=== PATIENT | male | born 1950 | race Caucasian/White ===

== ENCOUNTER 2016-08-14 07:44 | Day surgery (SDC) | payer OTHER, MEDICARE ==
[2016-08-12 12:22] VITALS: BMI 28.8
[2016-08-14] MEDS ORDERED: PROPOFOL 20 ML ONE ×2 (07:48)
[2016-08-14 09:39] VITALS: TEMP 98
[2016-08-14 09:40] VITALS: BP 125/68; PULSE 56
--- NOTE | 2016-08-15 16:07 | PATH ---
Surgical Pathology Report Patient Name: ELIZABETH HUANG [facility]. Rec. #: [id number] /Age/Gender: 1950 (Age: 65) / M Account: [id number] Location: [facility] [place]-ENDOSCOPY Taken: 08/14/2016 Received: 08/14/2016 Reported: 08/15/2016 Physicians: Cayden Santos M.D. Specimen(s) Received BX LEFT COLON Clinical History Rule out colon cancer Polyp Final Diagnosis COLON, LEFT, POLYP, BIOPSY: POLYPOID FRAGMENTS OF COLONIC MUCOSA WITH SURFACE HYPERPLASTIC CHANGE. Electronically Signed Hay Becker M.D. Gross Description Received in formalin, labeled "left colon" are 3 marshall, irregular portions of soft tissue ranging from 0.1-0.3 cm in greatest dimension. The specimens are submitted in toto in one cassette. /08/14/2016 saudi08/14/2016
== END 2016-08-14 09:45 | disposition home or self-care (01) ==
LOC: FASU-ENDO 07:44
PROVIDERS: ATTEND Internal Medicine Gastroenterology
PROC: 0DBM8ZX Excision of Descending Colon, Via Natural or Artificial Opening Endoscopic, Diagnostic (ICD-10-PCS; principal; 2016-08-14 08:52)
DX: Z12.11 Encounter for screening for malignant neoplasm of colon (principal); Z80.0 Family history of malignant neoplasm of digestive organs; D12.4 Benign neoplasm of descending colon; K57.30 Diverticulosis of large intestine without perforation or abscess without bleeding
CPT/HCPCS: 88305-TC

== ENCOUNTER 2017-10-08 07:54 | Day surgery (SDC) | payer OTHER, MEDICARE ==
[2017-10-06 09:03] VITALS: BMI 28.1
[2017-10-08] MEDS ORDERED: PROPOFOL 20 ML ONE ×2 (08:03)
[2017-10-08 09:13] VITALS: TEMP 97.6
[2017-10-08 09:27] VITALS: BP 101/65; PULSE 62
--- NOTE | 2017-10-10 16:50 | PATH ---
Surgical Pathology Report Patient Name: ELIZABETH HUANG [facility]. Rec. #: [id number] /Age/Gender: 1950 (Age: 67) / M Account: [id number] Location: [address] [place] [address] Taken: 10/08/2017 Received: 10/08/2017 Reported: 10/10/2017 Physicians: Cayden Santos M.D. Specimen(s) Received A: DUODENUM B: BX ANTRUM Clinical History Dysphagia Postoperative diagnosis: Gastritis, rule out celiac disease Final Diagnosis A. DUODENUM, BIOPSY: DUODENAL MUCOSA WITH NO DIAGNOSTIC ABNORMALITIES. NO HISTOLOGIC EVIDENCE OF CELIAC DISEASE. B. ANTRUM, BIOPSY: GASTRIC MUCOSA WITH MILD ACTIVE CHRONIC GASTRITIS. IMMUNOSTAIN IS NEGATIVE FOR H. PYLORI ORGANISMS. Electronically Signed Keyshawn Beasley M.D. Gross Description A. Received in formalin, labeled "duodenum" are 2 marshall, irregular portions of soft tissue averaging 0.3 cm. in greatest dimension. The specimens are submitted in toto in one cassette. B. Received in formalin, labeled "antrum" are 2 marshall, irregular portions of soft tissue measuring 0.3 and 0.4 cm. in greatest dimension. The specimens are submitted in toto in one cassette. 10/09/2017 saudi10/09/2017
== END 2017-10-08 09:32 | disposition home or self-care (01) ==
LOC: FASU-ENDO 07:54
PROVIDERS: ATTEND Internal Medicine Gastroenterology
PROC: 0D748DZ Dilation of Esophagogastric Junction with Intraluminal Device, Via Natural or Artificial Opening Endoscopic (ICD-10-PCS; 2017-10-08)
PROC: 0DB98ZX Excision of Duodenum, Via Natural or Artificial Opening Endoscopic, Diagnostic (ICD-10-PCS; principal; 2017-10-08 08:43)
PROC: 0DB68ZX Excision of Stomach, Via Natural or Artificial Opening Endoscopic, Diagnostic (ICD-10-PCS; 2017-10-08 08:43)
DX: R13.10 Dysphagia, unspecified (principal); K29.50 Unspecified chronic gastritis without bleeding
CPT/HCPCS: 88305-TC; 88342-TC

== ENCOUNTER 2020-04-24 19:20 | Emergency (ER) | payer OTHER, MEDICARE ==
[2020-04-24 19:29] VITALS: BP 125/84; PULSE 82; TEMP 99; BMI 28.1
[2020-04-24 21:17] LABS: BASO % 4.6 % (0-2.0); EOS % 2.7 % (0-4.5); HEMATOCRIT 42.8 % (35.4-49); HEMOGLOBIN 14.5 GM/dl (11.7-16.9); LYMPH % 19.4 % (8-40); MCH 30.7 pg (25.7-33.7); MCHC 33.9 g/dl (32.0-35.9); MEAN CELL VOLUME 90.6 fl (80-96); MONO % 10.4 % (3.8-10.2); NEUT % 62.9 % (42.8-82.8); PLATELET COUNT 289 K/MM3 (134-434); RBC 4.72 M/mm3 (4.00-5.60); RDW 13.4 % (11.9-15.9); WHITE BLOOD COUNT 6.9 K/mm3 (4.0-10.8)
[2020-04-24 21:27] LABS: ALBUMIN 4.4 g/dl (3.4-5.0); BILIRUBIN,TOTAL 0.7 mg/dl (0.2-1); CALCIUM 9.8 mg/dl (8.5-10); CREATININE 0.8 mg/dl (0.55-1.3); TOT PROT 7.9 g/dl (6.4-8.2)
[2020-04-24] MEDS ORDERED: AZITHROMYCIN 250 MG TABLET PO ONE (22:54)
[2020-04-24] MEDS ORDERED: AMOX TR/POT CLAV 875MG/125MG TABLETS (FP) PO ONE (22:54)
[2020-04-24 23:04] LABS: N-TERMINAL BNP 51.7 pg/ml (5-125)
[2020-04-24] MEDS ORDERED: AZITHROMYCIN 250 MG TABLET ONE (23:04)
[2020-04-24] MEDS ORDERED: AMOX TR/POT CLAV 875MG/125MG TABLETS (FP) ONE (23:04)
== END 2020-04-24 23:15 | disposition home or self-care (01) ==
LOC: FER 19:20
DX: R06.02 Shortness of breath (principal); R05 Cough; J18.9 Pneumonia, unspecified organism
CPT/HCPCS: 36415; 71250-TC; 80053; 82550; 83880; 84484; 85025; 99285-25; C9803; U0003

== ENCOUNTER 2022-10-16 07:22 | Day surgery (SDC) | payer OTHER, MEDICARE ==
[2022-10-15 09:40] VITALS: BMI 27.3
[2022-10-16] MEDS ORDERED: PROPOFOL 80 ML ONE (07:41)
[2022-10-16] MEDS ORDERED: GLYCOPYRROLATE 0.2 MG/1 ML VIAL ONE (08:02)
[2022-10-16 08:41] VITALS: RESP 18; TEMP 97.3
[2022-10-16 08:52] VITALS: BP 100/60; PULSE 62
== END 2022-10-16 09:06 | disposition home or self-care (01) ==
LOC: FASU-ENDO 07:22
PROVIDERS: ATTEND Internal Medicine Gastroenterology
PROC: 0DJD8ZZ Inspection of Lower Intestinal Tract, Via Natural or Artificial Opening Endoscopic (ICD-10-PCS; principal; 2022-10-16 08:14)
DX: Z12.11 Encounter for screening for malignant neoplasm of colon (principal); Z80.0 Family history of malignant neoplasm of digestive organs; K57.30 Diverticulosis of large intestine without perforation or abscess without bleeding

== ENCOUNTER 2024-09-07 07:27 | Emergency (ER) | payer OTHER, MEDICARE ==
[2024-09-07 07:37] VITALS: BP 160/74; PULSE 57; RESP 17; TEMP 97.5; BMI 27.8
[2024-09-07] MEDS: predniSONE 20 MG TABLET (UD) PO ONE (08:08)
[2024-09-07] MEDS ORDERED: predniSONE 20 MG TABLET (UD) ONE (08:09)
== END 2024-09-07 08:32 | disposition home or self-care (01) ==
LOC: FER 07:27
DX: L23.7 Allergic contact dermatitis due to plants, except food (principal); R21 Rash and other nonspecific skin eruption; H05.221 Edema of right orbit
CPT/HCPCS: 99283-25